=== PATIENT | female | born 1980 | race American Indian/Alaskan Native ===

== ENCOUNTER 2016-04-22 18:09 | Inpatient (IN) | payer OTHER ==
--- NOTE | 2016-04-22 18:28 | History and Physical Report ---
History of Present Illness Date of examination: 04/22/16 Date of admission: 04/22/16 18:09 Chief complaint: IOL @ 39 weeks, patient has had several elevated b/p's in the office and TP 700 in 24h urine. dx pre-e. History of present illness: EDC Confirmation: 04/29/2016 Past History : 3 Term Births: 2 Premature Births: 0 Living Children: 2 Para: 2 Mult. Births: 0 Prev : 0 Prev. attempt? 0 Aborta: 0 Elect. Ab: 0 Spont. Ab: 0 Ectopics: 0 # 1 Delivery date: 11/17/2004 Weeks Gestation: 40 Delivery type: Hours of labor: >24 Anesthesia type: IV [place] [facility] [place] Sex: Female weight: 8-? Name: Miranda # 2 Delivery date: 10/05/2007 Weeks Gestation: 39 Delivery type: Hours of labor: >48 Anesthesia type: IV Delivery location: [place] Sex: Male weight: 7-? 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 of genital herpes: no Partner hx. of genital herpes: no Genetic History Congenital Heart Defect: Mom: no Dad: no Mariah Disease: Mom: no Dad: no Thalassemia Mom: no Dad: no Neural Tube Defect Mom: no Dad: no Down's Syndrome Mom: no Dad: no Joel-Sachs Mom: no Dad: no Sickle Cell Disease/Trait Mom: no Dad: no Hemophilia Mom: no Dad: no Muscular Dystrophy Mom: no Dad: no Cystic Fibrosis Mom: no Dad: no Merced Chorea Mom: no Dad: no Mental Retardation Mom: no Dad: no Fragile X Mom: no Dad: no Other Genetic/Chromosomal Disorder Mom: no Dad: no Child w/other defect Mom: no Dad: no Enviromental Exposures Xray Exposure: no Medication, drug, or alcohol use since LMP: no Chemical/Other Exposure: no Exposure to Cat Liter: no Hx of Parvovirus (Fifth Disease): no Active Medications (reviewed today): None Current Allergies (reviewed today): No known allergies Past History Past Medical History: no pertinent history Social history: - Obstetrical History Expected Date of Delivery: 04/29/16 Actual Gestation: 39 Week(s) 0 Day(s) : 3 Para: 2 Hx # Term Pregnancies: 2 Number of Pregnancies: 0 Spontaneous Abortions: 0 Induced : 0 Number of Living Children: 2 Medications and Allergies Allergies Allergy/AdvReac Type Severity Reaction Status Date / Time No Known Allergies Allergy Unverified 04/22/16 18:10 Review of Systems All systems: negative - Physical Exam Breasts: Positive: normal Cardiovascular: Regular rate Lungs: Positive: Clear to auscultation, Normal air movement Abdomen: Positive: normal appearance, soft Genitourinary (Female): Positive: normal external genitalia, normal perenium Vulva: both: normal Vagina: Positive: normal moisture Uterus: Positive: normal size Anus/Rectum: Positive: normal perianal skin Extremities: Positive: normal Deep Tendon Reflex Grade: Normal +2 - Obstetrical Uterine Contraction Monitor Mode: External Cervical Dilatation: 2 Cervical Effacement Percentage: 40 station: -3 Uterine Tone Measurement Phase: Resting Results All other labs normal. Laboratory Data-Patient Name: JUNIORMya HUYNHU Test Date Result Blood Type 10/27/2015 O Rh 10/27/2015 Positive Antibody Screen negative Rubella 10/27/2015 Immune Serology (RPR) 03/30/2016 nonreactive HBsAg 10/27/2015 Negative Hemoglobin 01/13/2016 10.8 Hematocrit 01/13/2016 32.4 Platelets 10/27/2015 219 [id number]/UL Chlamydia DNA 03/30/2016 Negative GC DNA/Culture 03/30/2016 Urine Culture 03/09/2016 Final report Group B Strep cult NEGATIVE PAP 09/29/2015 Normal, Satisfactory HIV 03/30/2016 AFP/Quad Screen Glucola Test 3hr GTT (Fasting) 1 hr 2 hr 3 hr OPTIONAL LABS-Patient Name:JUNIORMya HUYNHU Test Date Result Varicella Ab Sickle Cell 10/27/2015 Negative PPD Fibronectin Cystic Fibrosis Parvovirus TSH Free T4 Hepatitis C ALT AST Uric Acid Creatinine 24 hr Urine Protein FRED Assessment and Plan - Patient Problems (1) Pre-eclampsia, mild Current Visit: Yes Status: Acute Qualifiers: Trimester: third trimester Qualified Code(s): O14.03 - Mild to moderate pre -eclampsia, third trimester (2) 39 weeks gestation of Current Visit: Yes Status: Acute
[2016-04-22] MEDS ORDERED: PHENERGAN PO PRN (18:30)
[2016-04-22] MEDS ORDERED: ePHEDrine SULFATE IV PRN (18:30)
[2016-04-22] MEDS ORDERED: XYLOCAINE 2% INFILTRATI ONE (18:30)
[2016-04-22] MEDS ORDERED: MINERAL OIL PO PRN (18:30)
[2016-04-22] MEDS ORDERED: BRETHINE SUB-Q PRN (18:30)
[2016-04-22] MEDS ORDERED: STADOL IV PRN (18:30)
[2016-04-22] MEDS ORDERED: ZOFRAN IV PRN (18:30)
[2016-04-22] MEDS ORDERED: SUBLIMAZE IV PRN (18:30)
[2016-04-22] MEDS ORDERED: PITOCin/NS 20 UNIT/1000ML DRIP 1,000 ML IV SCH (19:00)
[2016-04-22] MEDS ORDERED: CERVIDIL VG ONE (19:00)
[2016-04-22] MEDS: LACTATED RINGERS 1,000 ML IV SCH (20:55)
[2016-04-22] MEDS ORDERED: PITOCin/NS 30 UNIT/500ML 500 ML IV SCH (21:00)
[2016-04-22 21:23] LABS: Hematocrit 35.1 % (30.3-42.9); Hemoglobin 12.3 gm/dl (10.1-14.3); Mean Corpuscular HGB Conc 35 % (30-34); Mean Corpuscular Hemoglobin 31 pg (28-32); Mean Corpuscular Volume 89 fl (79-97); Platelet Count 239 K/mm3 (140-440); Red Blood Count 3.96 M/mm3 (3.65-5.03); Red Cell Distribution Width 14.9 % (13.2-15.2); White Blood Count 8.2 K/mm3 (4.5-11.0)
[2016-04-22] MEDS ORDERED: AMBIEN PO PRN (22:33)
[2016-04-23] MEDS: LACTATED RINGERS 1,000 ML IV SCH ×3 (06:49→17:30)
[2016-04-23] MEDS ORDERED: STADOL IV PRN (10:44)
[2016-04-23] MEDS ORDERED: PITOCin/NS 30 UNIT/500ML 500 ML IV SCH (11:00)
--- NOTE | 2016-04-23 11:17 | Progress Note ---
Assessment and Plan - Patient Problems (1) 39 weeks gestation of Current Visit: Yes Status: Acute (2) Pre-eclampsia, mild Current Visit: Yes Status: Acute Qualifiers: Trimester: third trimester Qualified Code(s): O14.03 - Mild to moderate pre -eclampsia, third trimester Plan to address problem: Discussed with the patient the nature of serial induction. Questions answered. Discussed the risks of and. indications for operative intervention. Will continue induction until this evening. At that time reassess if labor has not started we'll stop induction. We'll allow to eat and possibly Cervidil this evening. If labor is progressing or other indications to continue induction we' ll do so at that time. Subjective - Subjective Date of service: 04/23/16 Patient reports: movement normal, contractions, no new complaints, no loss of fluid, no vaginal bleeding Objective - Vital Signs Vital Signs: Vital Signs - 12hr 04/22/16 04/22/16 04/22/16 23:22 23:27 23:32 Temperature Pulse Rate 90 81 92 H Respiratory Rate Blood Pressure O2 Sat by Pulse 99 99 99 Oximetry 04/22/16 04/22/16 04/22/16 23:37 23:42 23:43 Temperature Pulse Rate 82 85 84 Respiratory Rate Blood Pressure 131/82 O2 Sat by Pulse 99 99 Oximetry 04/22/16 04/22/16 04/22/16 23:47 23:52 23:57 Temperature Pulse Rate 84 100 H 95 H Respiratory Rate Blood Pressure O2 Sat by Pulse 98 99 99 Oximetry 04/23/16 04/23/16 04/23/16 00:02 00:07 00:12 Temperature Pulse Rate 84 84 96 H Respiratory Rate Blood Pressure O2 Sat by Pulse 99 97 98 Oximetry 04/23/16 04/23/16 04/23/16 00:27 00:29 00:32 Temperature 98.5 F Pulse Rate 95 H 95 H Respiratory 18 Rate Blood Pressure O2 Sat by Pulse 98 99 Oximetry 04/23/16 04/23/16 04/23/16 00:37 00:42 00:43 Temperature Pulse Rate 83 79 83 Respiratory Rate Blood Pressure 138/81 O2 Sat by Pulse 98 98 Oximetry 04/23/16 04/23/16 04/23/16 00:47 00:52 00:57 Temperature Pulse Rate 116 H 92 H 95 H Respiratory Rate Blood Pressure O2 Sat by Pulse 98 98 98 Oximetry 04/23/16 04/23/16 04/23/16 01:02 01:07 01:12 Temperature Pulse Rate 97 H 98 H 104 H Respiratory Rate Blood Pressure O2 Sat by Pulse 99 98 98 Oximetry 04/23/16 04/23/16 04/23/16 01:17 01:22 01:27 Temperature Pulse Rate 106 H 105 H 107 H Respiratory Rate Blood Pressure O2 Sat by Pulse 97 98 98 Oximetry 04/23/16 04/23/16 04/23/16 01:32 01:37 01:42 Temperature Pulse Rate 108 H 108 H 112 H Respiratory Rate Blood Pressure O2 Sat by Pulse 97 98 97 Oximetry 04/23/16 04/23/16 04/23/16 01:43 01:47 01:52 Temperature Pulse Rate 113 H 104 H 98 H Respiratory Rate Blood Pressure 144/91 O2 Sat by Pulse 99 98 Oximetry 04/23/16 04/23/16 04/23/16 01:57 02:02 02:07 Temperature Pulse Rate 100 H 98 H 92 H Respiratory Rate Blood Pressure O2 Sat by Pulse 99 98 99 Oximetry 04/23/16 04/23/16 04/23/16 02:12 02:17 02:22 Temperature Pulse Rate 94 H 91 H 94 H Respiratory Rate Blood Pressure O2 Sat by Pulse 98 98 98 Oximetry 04/23/16 04/23/16 04/23/16 02:27 02:32 02:37 Temperature Pulse Rate 93 H 107 H 85 Respiratory Rate Blood Pressure O2 Sat by Pulse 99 99 99 Oximetry 04/23/16 04/23/16 04/23/16 02:42 02:43 02:47 Temperature Pulse Rate 88 90 90 Respiratory Rate Blood Pressure 146/79 O2 Sat by Pulse 99 99 Oximetry 04/23/16 04/23/16 04/23/16 02:52 02:57 03:02 Temperature Pulse Rate 91 H 86 93 H Respiratory Rate Blood Pressure O2 Sat by Pulse 99 99 100 Oximetry 04/23/16 04/23/16 04/23/16 03:07 03:12 03:17 Temperature Pulse Rate 114 H 94 H 95 H Respiratory Rate Blood Pressure O2 Sat by Pulse 100 97 98 Oximetry 04/23/16 04/23/16 04/23/16 03:22 03:27 03:32 Temperature Pulse Rate 96 H 88 90 Respiratory Rate Blood Pressure O2 Sat by Pulse 97 97 98 Oximetry 04/23/16 04/23/16 04/23/16 03:37 03:42 03:43 Temperature Pulse Rate 91 H 90 97 H Respiratory Rate Blood Pressure 143/82 O2 Sat by Pulse 97 98 Oximetry 04/23/16 04/23/16 04/23/16 03:47 03:52 03:57 Temperature Pulse Rate 93 H 93 H 117 H Respiratory Rate Blood Pressure O2 Sat by Pulse 98 97 98 Oximetry 04/23/16 04/23/16 04/23/16 04:02 04:07 04:12 Temperature Pulse Rate 96 H 92 H 98 H Respiratory Rate Blood Pressure O2 Sat by Pulse 98 98 99 Oximetry 04/23/16 04/23/16 04/23/16 04:13 04:17 04:44 Temperature 97.8 F Pulse Rate 101 H 97 H Respiratory 20 Rate Blood Pressure 139/90 O2 Sat by Pulse 100 Oximetry 04/23/16 04/23/16 04/23/16 05:43 06:12 06:43 Temperature Pulse Rate 100 H 84 95 H Respiratory Rate Blood Pressure 142/98 136/67 137/65 O2 Sat by Pulse Oximetry 04/23/16 04/23/16 04/23/16 09:59 10:10 11:02 Temperature 98.2 F Pulse Rate 115 H 104 H Respiratory 16 Rate Blood Pressure 158/78 137/82 O2 Sat by Pulse Oximetry - Exam Breasts: deferred Cardiovascular: Regular rate Lungs: Normal air movement Abdomen: Present: normal appearance, soft Uterus: Present: normal, firm - Labs Labs: Abnormal Labs 04/22/16 21:00 MCHC 35 H Laboratory Results - last 24 hr 04/22/16 04/22/16 04/22/16 20:45 21:00 21:00 WBC 8.2 RBC 3.96 Hgb 12.3 Hct 35.1 MCV 89 MCH 31 MCHC 35 H RDW 14.9 Plt Count 239 RPR Nonreactive Blood Type O POSITIVE Antibody Screen Negative
--- NOTE | 2016-04-23 16:07 | Event Note ---
Date: 04/23/16 AROM no fluid cx /-2. Patient declined epidural at this time.
[2016-04-23] MEDS ORDERED: NARCAN 2 MG/2 ML IV PRN (18:02)
--- NOTE | 2016-04-23 18:02 | Anesthesia Consultation ---
Anesthesia Consult and Med Hx Date of service: 04/23/16 - Airway Anesthetic Teeth Evaluation: Good ROM Head & Neck: Adequate Mental/Hyoid Distance: Adequate Mallampati Class: Class II Intubation Access Assessment: Probably Good - Pulmonary Exam CTA: Yes - Cardiac Exam Cardiac Exam: RRR - Pre-Operative Health Status ASA Pre-Surgery Classification: ASA2 Proposed Anesthetic Plan: Epidural - Pulmonary Hx Asthma: No COPD: No Hx Pneumonia: No - Cardiovascular System Hx Hypertension: No - Central Nervous System Hx Seizures: No Hx Psychiatric Problems: No - Endocrine Hx Renal Disease: No Hx End Stage Renal Disease: No Hx Hypothyroidism: No Hx Hyperthyroidism: No - Hematic Hx Anemia: No Hx Sickle Cell Disease: No - Other Systems Hx Alcohol Use: No
[2016-04-23] MEDS: ePHEDrine SULFATE IV PRN ×3 (18:28→18:52)
[2016-04-23] MEDS ORDERED: fentaNYL-BUPIV 2 MCG/ML-0.125% 100 ML EPIDURAL SCH (19:00)
--- NOTE | 2016-04-23 20:32 | Procedure Note ---
OB Delivery Note - Delivery Date of Delivery: 04/23/16 Surgeon: BOO DEJESUS Estimated blood loss: 300cc - Vaginal Delivery position: OA Intrapartum events: shoulder dystocia (Duration 1 minutes resolved with Diana and maternal pushing) Delivery augmentation: rupture of membranes, pitocin Delivery monitor: external FHT Route of delivery: Delivery placenta: spontaneous Delivery cord: 3 umbilical vessels Delivery laceration: 2nd degree Delivery repair: vicryl Anesthesia: epidural - A at 1 minute: 8 at 5 minutes: 8 Infant Gender: Female (Good tone)
[2016-04-23] MEDS ORDERED: SODIUM CHLORIDE FLUSH SYRINGE 10 ML IV NR (21:41)
[2016-04-23] MEDS ORDERED: TYLENOL PO PRN (21:41)
[2016-04-23] MEDS ORDERED: DERMOPLAST TP PRN (21:41)
[2016-04-23] MEDS ORDERED: MILK OF MAGNESIA PO PRN (21:41)
[2016-04-23] MEDS ORDERED: PHENERGAN PO PRN (21:41)
[2016-04-23] MEDS ORDERED: BENADRYL PO PRN (21:41)
[2016-04-23] MEDS ORDERED: LANSINOH TP PRN (21:41)
[2016-04-23] MEDS ORDERED: DULCOLAX PR PRN (21:41)
[2016-04-23] MEDS ORDERED: TUCKS PAD TP PRN (21:41)
[2016-04-23] MEDS: NORCO 5/325 PO PRN (21:56)
[2016-04-23] MEDS: FEOSOL PO SCH (23:26)
[2016-04-23] MEDS: COLACE PO SCH (23:26)
[2016-04-23] MEDS: MOTRIN PO SCH (23:29)
[2016-04-24] MEDS: MOTRIN PO SCH ×3 (06:30→19:00)
[2016-04-24 13:53] LABS: Hematocrit 28.9 % (30.3-42.9); Hemoglobin 9.9 gm/dl (10.1-14.3)
[2016-04-24] MEDS: PRENATAL VITAMIN PO SCH (16:30)
[2016-04-24] MEDS: FEOSOL PO SCH (16:30)
[2016-04-24] MEDS: COLACE PO SCH (16:30)
[2016-04-24] MEDS: NORCO 5/325 PO PRN (16:30)
--- NOTE | 2016-04-24 18:40 | Progress Note ---
Subjective Date of service: 04/24/16 Interval history: Pt doing well. No anesthetic related complaints. Objective - Constitutional Vitals: Vital Signs - 12hr 04/24/16 04/24/16 08:00 16:23 Temperature 98.7 F 98.7 F Pulse Rate [ 98 H 106 H From Monitor] Respiratory 26 H 30 H Rate Blood Pressure 151/73 [Left Arm] Blood Pressure 140/77 [Right Arm] - Labs CBC & Chem 7: 04/24/16 13:35 Labs: Abnormal lab results 04/24/16 Range/Units 13:35 Hgb 9.9 L (10.1-14.3) gm/dl Hct 28.9 L D (30.3-42.9) %
[2016-04-25] MEDS: NORCO 5/325 PO PRN (00:35)
[2016-04-25] MEDS: FEOSOL PO SCH ×2 (00:37→12:05)
[2016-04-25] MEDS: COLACE PO SCH ×2 (00:37→12:05)
--- NOTE | 2016-04-25 06:47 | Progress Note ---
Assessment and Plan Pt w/o complaint this AM Resting quietly No c/o CARMONA, blurred vision, chest pain. BP 130/60s, Afebrile Slight elevation in pulse 90s RRR FF below umb Lochia small Perineum intact H&H 9.9/28.9, drop r/t blood loss from delivery Doing well s/p vag del. Mild PreE stable P: continue pathway Plan d/c tomorrow if stable Will consult with . - Patient Problems (1) Pre-eclampsia, mild Current Visit: Yes Status: Acute Qualifiers: Trimester: third trimester Qualified Code(s): O14.03 - Mild to moderate pre -eclampsia, third trimester Plan to address problem: BPs 130/60s no medication at this time (2) Spontaneous vaginal delivery Current Visit: Yes Status: Acute Plan to address problem: doing well continue pathway Subjective - Subjective Date of service: 04/25/16 (pt w/o complaint) Patient reports: appetite normal, voiding normally, pain well controlled, ambulating normally [place]: doing well Objective - Vital Signs Latest vital signs: Vital Signs Temp Pulse Resp BP BP 04/25/16 05:54 98.2 F 78 18 133/68 04/24/16 20:30 98.5 F 96 H 22 138/65 04/24/16 20:25 98.5 F 96 H 22 138/65 04/24/16 16:23 98.7 F 106 H 30 H 151/73 04/24/16 08:00 98.7 F 98 H 26 H 140/77 Intake and Output 04/24/16 04/24/16 04/25/16 14:59 22:59 06:59 Intake Total 720 480 720 Output Total 900 2 Balance -180 480 718 Intake: Oral 720 480 720 Output: Urine 900 2 Void 900 Indwelling Catheter 2 Other: Total, Intake Amount 240 480 360 Total, Output Amount 900 2 Voiding Method Toilet # Voids Void 1 1 Indwelling Catheter 1 # Bowel Movements 0 - Exam Breasts: Present: Cardiovascular: Present: Regular rate Lungs: Present: Normal air movement Abdomen: Present: normal appearance, soft Uterus: Present: normal, fundal height below umbilicus Extremities: Present: edema Deep Tendon Reflex Grade: Normal +2 - Labs Labs: Abnormal lab results 04/24/16 Range/Units 13:35 Hgb 9.9 L (10.1-14.3) gm/dl Hct 28.9 L D (30.3-42.9) %
--- NOTE | 2016-04-25 09:04 | Event Note ---
Date: 04/25/16 Agree with exam and note. Will con't to monitor bp until this afternoon and if remains <160/105 will d/c home. Pt aware and agrees with plan of care.
[2016-04-25] MEDS: MOTRIN PO SCH (12:05)
[2016-04-25] MEDS: PRENATAL VITAMIN PO SCH (12:05)
--- NOTE | 2016-04-25 12:42 | Discharge Summary ---
Providers - Providers Date of Admission: 04/22/16 18:09 Date of discharge: 04/25/16 (pt desires d/c today) Attending physician: BOO DEJESUS 04/23/16 21:41 Consult to Regional Director Of Admissions [CONS] Routine Reason For Exam: assistance with , SNS Primary care physician: PROSTHETIST Hospitalization Reason for admission: induction of labor (PreE) Delivery: Episiotomy: none Laceration: none Other procedures: none complications: none Discharge diagnosis: IUP at term delivered baby: female Hospital course: uncomplicated vaginal delivery Condition at discharge: Good Disposition: DISCHARGED TO HOME OR SELFCARE - Discharge Diagnoses (1) Pre-eclampsia, mild Status: Acute Qualifiers: Trimester: third trimester Qualified Code(s): O14.03 - Mild to moderate pre -eclampsia, third trimester Comment: rto 1 week for BP check (2) Spontaneous vaginal delivery Status: Acute Comment: rto 4-6 weeks for visit Plan - Provider Discharge Summary Activity: routine, no sex for 6 weeks, no heavy lifting 4 weeks, no strenuous exercise Diet: routine Instructions: routine Additional instructions: [] Smoking cessation referral if applicable(refer to patient education folder for contact #) [] Refer to [facility]'s [facility] [address] Booklet Call your doctor immediately for: * Fever > 100.5 * Heavy vaginal bleeding ( >1 pad per hour) * Severe persistent headache * Shortness of breath * Reddened, hot, painful area to leg or breast * Drainage or odor from incision. * Keep incision clean and dry at all times and follow doctor's instructions regarding bathing/showering - Follow up plan Follow up: PRIMARY CARE, [Primary Care Provider] - 7 Days MYRNA OWENS CNM [Advanced Practice Nurse] - 7 Days (congratulations! Please call [phone] to schedule your visit for blood pressure check in 1 week and your visit in 4-6 weeks. call with CARMONA, blurrred vision, chest pain. Call with any concerns.)
[2016-04-25] MEDS ORDERED: BOOSTRIX IM ONE (14:30)
[2016-04-25] MEDS ORDERED: FLUARIX QUAD 2016-2017(36 MOS+) IM ONE (14:30)
[2016-04-25 17:39] VITALS: BP 148/88
== END 2016-04-25 17:26 | disposition home or self-care (01) | DRG 775 ==
LOC: LD 18:09 → OB 04-23 22:28
PROVIDERS: ADMIT Obstetrics & Gynecology; ATTEND Obstetrics & Gynecology
PROC: 10E0XZZ Delivery of Products of Conception, External Approach (ICD-10-PCS; principal; 2016-04-23)
DX: O14.04 Mild to moderate pre-eclampsia, complicating childbirth (principal); Z3A.39 39 weeks gestation of pregnancy; Z37.0 Single live birth
CPT/HCPCS: 36415; 85014; 85018; 85027; 86592; 86850; 86900; 86901; 90686; 90715; 99211; G0463; J0595; J2590; J7120

== ENCOUNTER 2019-10-28 07:32 | Outpatient (CLI) | payer OTHER ==
--- NOTE | 2019-10-28 08:37 | Mammography Report ---
DIGITAL SCREENING MAMMOGRAM WITH CAD, 10/28/2019 INDICATION: Routine screening mammography. TECHNIQUE: Digital bilateral 2D mammography was obtained in the craniocaudal and mediolateral obliq ue projections. This examination was interpreted with the benefit of Computer-Aided Detection analysi s. COMPARISON: None. FINDINGS: Breast Density: There are scattered areas of fibroglandular density. There is no evidence of dominant mass, suspicious calcifications or architectural distortion in eithe r breast. IMPRESSION: Follow up recommendation: Routine yearly BI-RADS Category 1: Negative. A "normal" or negative report should not discourage follow up or biopsy of a clinically significant f inding. A written summary of these findings will be mailed to the patient. The patient will be entered into a mammography reporting system which will generate a reminder letter for the patient's next appointmen t at the appropriate interval. The [employer] recommends yearly mammograms starting at age 40 and continuing as l akrmen as a woman is in good health. Breast MRI is recommended for women with an approximate 20-25% or greater lifetime risk of breast cancer, including women with a strong family history of breast or ova carlo cancer or who have been treated for Hodgkin's disease. Signer Name: Curtis Bee MD Signed: 10/28/2019 8:33 AM Workstation Name: [email or web address]
== END 2019-10-28 07:33 | disposition home or self-care (01) ==
LOC: MAMMO 07:32
PROVIDERS: ATTEND Family Medicine
DX: Z12.31 Encounter for screening mammogram for malignant neoplasm of breast (principal); N64.89 Other specified disorders of breast
CPT/HCPCS: 77067

== ENCOUNTER 2020-03-27 15:21 | Emergency (ER) | payer OTHER ==
[2020-03-27] MEDS ORDERED: BUTALB/ACETAMINOPHEN/CAFFEINE TAB PO ONE (20:41)
[2020-03-27 21:24] LABS: Basophils % (Auto) 0.3 % (0.0-1.8); Eosinophils % (Auto) 0.5 % (0.0-4.3); Hematocrit 37.6 % (30.3-42.9); Hemoglobin 12.7 gm/dl (10.1-14.3); Lymphocytes # (Auto) 2.2 K/mm3 (1.2-5.4); Lymphocytes % (Auto) 36.2 % (13.4-35.0); Mean Corpuscular HGB Conc 34 % (30-34); Mean Corpuscular Volume 93 fl (79-97); Monocytes # (Auto) 0.6 K/mm3 (0.0-0.8); Platelet Count 251 K/mm3 (140-440); Red Blood Count 4.03 M/mm3 (3.65-5.03); Red Cell Distribution Width 14.1 % (13.2-15.2)
--- NOTE | 2020-03-27 21:33 | Cat Scan Report ---
CT head/brain wo con INDICATION: Headache, syncope, fall. TECHNIQUE: Routine CT head without contrast. All CT scans at this location are performed using CT dose reduction for ALARA by means of automated exposure control. COMPARISON: None. FINDINGS: BRAIN / INTRACRANIAL CONTENTS: No acute hemorrhage, brain edema, mass effect, or hydrocephalus. Paz l hannah-white differentiation. No chronic infarct or focal atrophy. Normal brain volume and ventricula r/sulcal size for age. CALVARIUM/SKULL BASE/CRANIOCERVICAL JUNCTION: No evidence of fracture. ORBITS: No significant abnormality of visualized orbits. SINUSES / MASTOIDS: No significant abnormality of visualized sinuses and mastoid air cells. ADDITIONAL FINDINGS: None. IMPRESSION: 1. No acute post-traumatic intracranial abnormality. Signer Name: Gagan Ureña MD Signed: 03/27/2020 9:29 PM Workstation Name: [id number]
--- NOTE | 2020-03-27 21:34 | Cat Scan Report ---
CT CERVICAL SPINE WITHOUT CONTRAST INDICATION: Neck pain after fall. TECHNIQUE: Axial CT images of the spine were obtained. Sagittal and coronal reformatted images were produced. Al l CT scans at this location are performed using CT dose reduction for ALARA by means of automated exp osure control. COMPARISON: None available. FINDINGS: ACUTE FRACTURE(S) OR SUBLUXATION: None. SPINAL DEGENERATIVE CHANGES: There is mild degenerative disc disease at C5-6 with reactive endplate o steophyte formation. There is no significant spinal canal or neural foraminal narrowing. PARASPINAL SOFT TISSUES: No soft tissue swelling or other acute abnormalities. ADDITIONAL FINDINGS: No significant additional findings. IMPRESSION: 1. No acute fracture or subluxation in the spine in neutral position. Signer Name: Gagan Ureña MD Signed: 03/27/2020 9:30 PM Workstation Name: [id number]
[2020-03-27 21:38] LABS: Mucus,Urine 3+ /HPF
[2020-03-27 21:40] LABS: Bilirubin,Urine NEG (Negative); Blood,Urine LG (Negative); Color,Urine Yellow (Yellow); Urobilinogen,Urine < 2.0 mg/dL (<2.0)
[2020-03-27 21:42] LABS: Alanine Aminotransferase 13 units/L (7-56); Blood Urea Nitrogen 10 mg/dL (7-17); Calcium 9.4 mg/dL (8.4-10.2); Hemolysis Index 6
[2020-03-27 21:51] LABS: BUN/Creatinine Ratio 20
--- NOTE | 2020-03-27 22:05 | Emergency Department Report ---
ED General Adult HPI - General Chief complaint: Syncope Stated complaint: FALL Time Seen by Provider: 03/27/20 20:39 Source: patient Mode of arrival: Ambulatory Limitations: No Limitations - History of Present Illness Initial comments: Patient is a 39-year-old female presents emergency room with points of a fall that occurred last night. She states that she was looking up and putting eyedrops in her eyes when she felt dizzy and believes she had a very brief episode of loss of consciousness. She states that she does feel disoriented for a couple of seconds but did not wake up on the floor. She is complaining planing of pain to the back of her head, neck pain, right elbow pain. She denies any vision changes, vomiting, numbness, weakness, bowel or bladder incontinence, acute back pain, any other injury. She has a past medical history of hypertension, GERD, eye inflammation. No allergies to medications. Last menstrual cycle 03/07/2020. Severity scale (0 -10): 5 - Related Data Home Medications Medication Instructions Recorded Confirmed Last Taken Vit-Fe Fumar-FA [ 1 tab PO QDAY 04/23/16 04/23/16 04/22/16 Vitamin] Previous Rx's Medication Instructions Recorded Last Taken Type Butalb/Acetaminophen/Caffeine 1 cap PO Q8HR PRN #10 cap 03/27/20 Unknown Rx [Fioricet 50-300-40 mg CAP] cephALEXin [Keflex] 500 mg PO BID 7 Days #14 capsule 03/27/20 Unknown Rx methOCARBAMOL [Robaxin TAB] 500 mg PO BID PRN #14 tab 03/27/20 Unknown Rx Allergies Allergy/AdvReac Type Severity Reaction Status Date / Time No Known Allergies Allergy Unverified 04/22/16 18:10 ED Review of Systems ROS: Stated complaint: FALL Other details as noted in HPI Comment: All other systems reviewed and negative ED Past Medical Hx - Past Medical History Previous Medical History?: Yes Hx Hypertension: Yes Hx Congestive Heart Failure: No Hx Diabetes: No Hx Deep Vein Thrombosis: No Hx Renal Disease: No Hx Sickle Cell Disease: No Hx Seizures: No Hx Asthma: No Hx COPD: No Hx HIV: No - Social History Smoking Status: Never Smoker - Medications Home Medications: Home Medications Medication Instructions Recorded Confirmed Last Taken Type Vit-Fe Fumar-FA [ 1 tab PO QDAY 01/04/23/16 04/22/16 History Vitamin] Butalb/Acetaminophen/Caffeine 1 cap PO Q8HR PRN #10 cap 03/27/20 Unknown Rx [Fioricet 50-300-40 mg CAP] cephALEXin [Keflex] 500 mg PO BID 7 Days #14 capsule 03/27/20 Unknown Rx methOCARBAMOL [Robaxin TAB] 500 mg PO BID PRN #14 tab 03/27/20 Unknown Rx ED Physical Exam - General Limitations: No Limitations General appearance: alert, in no apparent distress - Head Head exam: Present: other (ttp to the posterior scalp, no hematoma, no crepitus, no deformity) - Eye Eye exam: Present: normal appearance, PERRL, EOMI. Absent: periorbital swelling, periorbital tenderness Pupils: Present: normal accommodation - ENT ENT exam: Present: mucous membranes moist - Neck Neck exam: Present: normal inspection, tenderness (bilateral C-spine paraspinal muscular ttp, no midline C-spine ttp, no step offs, no deformities), full ROM - Respiratory Respiratory exam: Present: normal lung sounds bilaterally. Absent: respiratory distress, wheezes, rales, rhonchi, stridor, chest wall tenderness, accessory muscle use, decreased breath sounds, prolonged expiratory - Cardiovascular Cardiovascular Exam: Present: regular rate, normal rhythm, normal heart sounds. Absent: systolic murmur, diastolic murmur, rubs, gallop - Extremities Exam Extremities exam: Present: other (mild right elbow ttp, FROM of the RUE, no deformity, no edema, no skin changes, neurovascularly intact) - Back Exam Back exam: Present: normal inspection, full ROM. Absent: paraspinal tenderness, vertebral tenderness - Neurological Exam Neurological exam: Present: alert, oriented X3, CN II-XII intact, normal gait. Absent: motor sensory deficit - Psychiatric Psychiatric exam: Present: normal affect, normal mood - Skin Skin exam: Present: warm, dry, intact ED Course Vital Signs 03/27/20 03/27/20 15:40 22:47 Temperature 98.5 F 98.2 F Pulse Rate 81 77 Respiratory 16 18 Rate Blood Pressure 129/56 128/76 [Right] O2 Sat by Pulse 95 99 Oximetry ED Medical Decision Making - Lab Data Result diagrams: 03/27/20 20:56 03/27/20 20:56 Lab Results 03/27/20 03/27/20 03/27/20 Range/Units 20:56 20:56 20:56 WBC 6.1 (4.5-11.0) K/mm3 RBC 4.03 (3.65-5.03) M/mm3 Hgb 12.7 (10.1-14.3) gm/dl Hct 37.6 (30.3-42.9) % MCV 93 (79-97) fl MCH 32 (28-32) pg MCHC 34 (30-34) % RDW 14.1 (13.2-15.2) % Plt Count 251 (140-440) K/mm3 Lymph % (Auto) 36.2 H (13.4-35.0) % Tyrrell % (Auto) 10.0 H (0.0-7.3) % Eos % (Auto) 0.5 (0.0-4.3) % Baso % (Auto) 0.3 (0.0-1.8) % Lymph # (Auto) 2.2 (1.2-5.4) K/mm3 Tyrrell # (Auto) 0.6 (0.0-0.8) K/mm3 Eos # (Auto) 0.0 (0.0-0.4) K/mm3 Baso # (Auto) 0.0 (0.0-0.1) K/mm3 Seg Neutrophils % 53.0 (40.0-70.0) % Seg Neutrophils # 3.2 (1.8-7.7) K/mm3 Sodium 136 L (137-145) mmol/L Potassium 3.5 L (3.6-5.0) mmol/L Chloride 101.8 (98-107) mmol/L Carbon Dioxide 24 (22-30) mmol/L Anion Gap 14 mmol/L BUN 10 (7-17) mg/dL Creatinine 0.5 L (0.6-1.2) mg/dL Estimated GFR > 60 ml/min BUN/Creatinine Ratio 20 % Glucose 88 (65-100) mg/dL Calcium 9.4 (8.4-10.2) mg/dL Magnesium 2.20 (1.7-2.3) mg/dL Total Bilirubin 0.40 (0.1-1.2) mg/dL AST 16 (5-40) units/L ALT 13 (7-56) units/L Alkaline Phosphatase 75 (35-129) units/L Total Creatine Kinase 351 H (30-135) units/L Total Protein 7.9 (6.3-8.2) g/dL Albumin 4.0 (3.9-5) g/dL Albumin/Globulin Ratio 1.0 % HCG, Qual Negative (Negative) Urine Color (Yellow) Urine Turbidity (Clear) Urine pH (5.0-7.0) Ur Specific [place] (1.003-1.030) Urine Protein (Negative) mg/dL Urine Glucose (UA) (Negative) mg/dL Urine Ketones (Negative) mg/dL Urine Blood (Negative) Urine Nitrite (Negative) Ur Reducing Substances Urine Bilirubin (Negative) Urine Ictotest Urine Urobilinogen (<2.0) mg/dL Ur Leukocyte Esterase (Negative) Urine WBC (Auto) (0.0-6.0) /HPF Urine RBC (Auto) (0.0-6.0) /HPF U Epithel Cells (Auto) (0-13.0) /HPF Urine Mucus /HPF /18/20 Range/Units 21:08 WBC (4.5-11.0) K/mm3 RBC (3.65-5.03) M/mm3 Hgb (10.1-14.3) gm/dl Hct (30.3-42.9) % MCV (79-97) fl MCH (28-32) pg MCHC (30-34) % RDW (13.2-15.2) % Plt Count (140-440) K/mm3 Lymph % (Auto) (13.4-35.0) % Tyrrell % (Auto) (0.0-7.3) % Eos % (Auto) (0.0-4.3) % Baso % (Auto) (0.0-1.8) % Lymph # (Auto) (1.2-5.4) K/mm3 Tyrrell # (Auto) (0.0-0.8) K/mm3 Eos # (Auto) (0.0-0.4) K/mm3 Baso # (Auto) (0.0-0.1) K/mm3 Seg Neutrophils % (40.0-70.0) % Seg Neutrophils # (1.8-7.7) K/mm3 Sodium (137-145) mmol/L Potassium (3.6-5.0) mmol/L Chloride (98-107) mmol/L Carbon Dioxide (22-30) mmol/L Anion Gap mmol/L BUN (7-17) mg/dL Creatinine (0.6-1.2) mg/dL Estimated GFR ml/min BUN/Creatinine Ratio % Glucose (65-100) mg/dL Calcium (8.4-10.2) mg/dL Magnesium (1.7-2.3) mg/dL Total Bilirubin (0.1-1.2) mg/dL AST (5-40) units/L ALT (7-56) units/L Alkaline Phosphatase (35-129) units/L Total Creatine Kinase (30-135) units/L Total Protein (6.3-8.2) g/dL Albumin (3.9-5) g/dL Albumin/Globulin Ratio % HCG, Qual (Negative) Urine Color Yellow (Yellow) Urine Turbidity Cloudy (Clear) Urine pH 5.0 (5.0-7.0) Ur Specific [place] 1.024 (1.003-1.030) Urine Protein 30 mg/dl (Negative) mg/dL Urine Glucose (UA) Neg (Negative) mg/dL Urine Ketones Neg (Negative) mg/dL Urine Blood Lg (Negative) Urine Nitrite Neg (Negative) Ur Reducing Substances Not Reportable Urine Bilirubin Neg (Negative) Urine Ictotest Not Reportable Urine Urobilinogen < 2.0 (<2.0) mg/dL Ur Leukocyte Esterase Tr (Negative) Urine WBC (Auto) 11.0 H (0.0-6.0) /HPF Urine RBC (Auto) 75.0 (0.0-6.0) /HPF U Epithel Cells (Auto) 9.0 (0-13.0) /HPF Urine Mucus 3+ /HPF Vital Signs 03/27/20 03/27/20 15:40 22:47 Temperature 98.5 F 98.2 F Pulse Rate 81 77 Respiratory 16 18 Rate Blood Pressure 129/56 128/76 [Right] O2 Sat by Pulse 95 99 Oximetry - EKG Data EKG shows normal: sinus rhythm, axis, intervals, QRS complexes, ST-T waves Rate: normal - Radiology Data Radiology results: report reviewed CT CERVICAL SPINE WITHOUT CONTRAST INDICATION: Neck pain after fall. TECHNIQUE: Axial CT images of the spine were obtained. Sagittal and coronal reformatted images were produced. All CT scans at this location are performed using CT dose reduction for ALARA by means of automated exposure control. COMPARISON: None available. FINDINGS: ACUTE FRACTURE(S) OR SUBLUXATION: None. SPINAL DEGENERATIVE CHANGES: There is mild degenerative disc disease at C5-6 with reactive endplate osteophyte formation. There is no significant spinal canal or neural foraminal narrowing. PARASPINAL SOFT TISSUES: No soft tissue swelling or other acute abnormalities. ADDITIONAL FINDINGS: No significant additional findings. IMPRESSION: 1. No acute fracture or subluxation in the spine in neutral position. Signer Name: Gagan Ureña MD Signed: 03/27/2020 8:30 PM Workstation Name: [id number] CT head/brain wo con INDICATION: Headache, syncope, fall. TECHNIQUE: Routine CT head without contrast. All CT scans at this location are performed using CT dose reduction for ALARA by means of automated exposure control. COMPARISON: None. FINDINGS: BRAIN / INTRACRANIAL CONTENTS: No acute hemorrhage, brain edema, mass effect, or hydrocephalus. Normal hannah-white differentiation. No chronic infarct or focal atrophy. Normal brain volume and ventricular/sulcal size for age. CALVARIUM/SKULL BASE/CRANIOCERVICAL JUNCTION: No evidence of fracture. ORBITS: No significant abnormality of visualized orbits. SINUSES / MASTOIDS: No significant abnormality of visualized sinuses and mastoid air cells. ADDITIONAL FINDINGS: None. IMPRESSION: 1. No acute post-traumatic intracranial abnormality. Signer Name: Gagan Ureña MD Signed: 03/27/2020 8:29 PM Workstation Name: [id number] RIGHT ELBOW 3 VIEWS INDICATION / CLINICAL INFORMATION: right elbow pain after fall. COMPARISON: None available. FINDINGS: No significant skeletal abnormality Signer Name: Arash Nichole MD FACR Signed: 03/27/2020 9:06 PM Workstation Name: [id number] - Medical Decision Making Patient is a 39-year-old female presents emergency room with points of a fall that occurred last night. She states that she was looking up and putting eyed rops in her eyes when she felt dizzy and believes she had a very brief episode of loss of consciousness. She states that she does feel disoriented for a couple of seconds but did not wake up on the floor. She is complaining planing of pain to the back of her head, neck pain, right elbow pain. She denies any vision changes, vomiting, numbness, weakness, bowel or bladder incontinence, acute back pain, any other injury. She has a past medical history of hypertension, GERD, eye inflammation. No allergies to medications. Last menstrual cycle 03/07/2020. VSS. on exam: bilateral C-spine paraspinal muscular ttp, no midline C-spine ttp, no step offs, no deformities, ttp to the posterior scalp, no hematoma, no crepitus, no deformity, mild right elbow ttp, FROM of the RUE, no deformity, no edema, no skin changes, neurovascularly intact. EKG is WNL. labs are stable. UA shows evidence of UTI with WBCs, RBCs, leukocyte esterase. CT cervical spine: 1. No acute fracture or subluxation in the spine in neutral position. CT head: 1. No acute post-traumatic intracranial abnormality. XR elbow right: No significant skeletal abnormality. Discussed all results with patient and answered questions. Patient given Fioricet while in the ED and her headache improved. Patient given prescription for Fioricet, Robaxin, Keflex. Advised patient Please take medication as prescribed. Do not drive or operate machinery while taking muscle relaxer Robaxin. May use ice pack, heating pad, rest, Epsom salt bath. Follow-up with your primary care doctor. Follow-up with your neurologist. Return to emergency room for new or worsening symptoms. Critical care attestation.: If time is entered above; I have spent that time in minutes in the direct care of this critically ill patient, excluding procedure time. ED Disposition Clinical Impression: Right elbow pain Fall Qualifiers: Encounter type: initial encounter Qualified Code(s): W19.XXXA - Unspecified fal l, initial encounter Minor head injury Qualifiers: Encounter type: initial encounter Qualified Code(s): S09.90XA - Unspecified injury of head, initial encounter Cervical strain Qualifiers: Encounter type: initial encounter Qualified Code(s): S16.1XXA - Strain of muscle, fascia and tendon at neck level, initial encounter Syncope Qualifiers: Syncope type: unspecified Qualified Code(s): R55 - Syncope and collapse UTI (urinary tract infection) Qualifiers: Urinary tract infection type: acute cystitis Hematuria presence: with hematuria Qualified Code(s): N30.01 - Acute cystitis with hematuria Disposition: DC-01 TO HOME OR SELFCARE Is pt being admited?: No Does the pt Need Aspirin: No Condition: Stable Instructions: Head Injury, Adult, Urinary Tract Infection, Adult, Musculoskeletal Pain, Syncope, [id number], Syncope (ED) Additional Instructions: Please take medication as prescribed. Do not drive or operate machinery while taking muscle relaxer Robaxin. May use ice pack, heating pad, rest, Epsom salt bath. Follow-up with your primary care doctor. Follow-up with your neurologist. Return to emergency room for new or worsening symptoms. Prescriptions: Butalb/Acetaminophen/Caffeine [Fioricet 50-300-40 mg CAP] 1 cap PO Q8HR PRN #10 cap PRN Reason: headache cephALEXin [Keflex] 500 mg PO BID 7 Days #14 capsule methOCARBAMOL [Robaxin TAB] 500 mg PO BID PRN #14 tab PRN Reason: pain Referrals: URIAH BOUDREAUX MD [Primary Care Provider] - 2-3 Days GALE HUGHES MD [Staff Physician] - 2-3 Days [facility] [Provider Group] - 2-3 Days DAVEY COLLADO MD [Referring] - 2-3 Days Time of Disposition: 22:17 Print Language: GREEK
--- NOTE | 2020-03-27 22:10 | XRay Report ---
RIGHT ELBOW 3 VIEWS INDICATION / CLINICAL INFORMATION: right elbow pain after fall. COMPARISON: None available. FINDINGS: No significant skeletal abnormality Signer Name: Arash Nichole MD FACR Signed: 03/27/2020 10:06 PM Workstation Name: [id number]
[2020-03-27 22:47] VITALS: BP 128/76
== END 2020-03-27 22:48 | disposition home or self-care (01) ==
LOC: ED 15:21
DX: S06.9X9A Unspecified intracranial injury with loss of consciousness of unspecified duration, initial encounter (principal); S16.1XXA Strain of muscle, fascia and tendon at neck level, initial encounter; R55 Syncope and collapse; N39.0 Urinary tract infection, site not specified; M25.521 Pain in right elbow; I10 Essential (primary) hypertension; Z79.899 Other long term (current) drug therapy; W19.XXXA Unspecified fall, initial encounter; Y93.89 Activity, other specified; Y92.89 Other specified places as the place of occurrence of the external cause; Y99.8 Other external cause status
CPT/HCPCS: 36415; 70450; 72125; 80053; 81001; 82550; 83735; 84703; 85025; 87086